=== PATIENT | male | born 1985 | race Caucasian/White ===

== ENCOUNTER → 2021-04-25 16:09 | Outpatient (CLI) | payer OTHER, SELFPAY ==
--- NOTE | 2021-04-25 | VAS_PTH ---
PATIENT: MALIA ALMEIDA LOC: [facility] U#:[id number] AGE/SX: 39/M ROOM: RE04/25/[address]: Dr. James Hollis MD : 1985 BED: DIS: SPEC #: [id number] RECD: 04/25/21 16:01 STATUS: ALONA HOSEA #: [id number] JESSE: 04/25/21 00:[address]: James Hollis DEPT: SURGICAL PATHOLOGY RECD BY: Rigo Sarah ENTERED: 04/26/21 09:15 SP TYPE: VAS OTHR DR: No Primary Care Phys Tissues: A - Vas deferens, NOS B - Vas deferens, NOS Procedures: Surgery Specimen Level II HEADER OPERATION: Bilateral partial vasectomy PRE-OP DIAGNOSIS: Sterilization TISSUE SUBMITTED: A ? Right vas deferens, B ? Left vas deferens MICROSCOPIC DIAGNOSIS A. Right vas deferens, partial vasectomy: Completely transected segment of vas deferens, no pathologic diagnosis. B. Left vas deferens, partial vasectomy: Completely transected segment of vas deferens, no pathologic diagnosis. JOSSUE:jamila 04/29/2021 MICROSCOPIC DESCRIPTION Slides are reviewed. GROSS DESCRIPTION A - Received is one container designated right vas deferens. The specimen consists of a tubular segment of nava soft tissue measuring 0.5 cm in length and 0.3 cm in diameter. The specimen is sectioned and submitted entirely in one cassette. B - Received is one container designated left vas deferens. The specimen consists of a tubular segment of nava soft tissue measuring 0.5 cm in length and 0.3 cm in diameter. The specimen is sectioned and submitted entirely in one cassette. / JOSSUE:jamila 04/26/21 TC:4 [facility]: [id number] x2
== END ==
PROVIDERS: Visit Provider Surgery
DX: Z30.2 Encounter for sterilization (principal)
CPT/HCPCS: 88302

== ENCOUNTER → 2021-05-28 11:48 | Outpatient (CLI) | payer OTHER, SELFPAY ==
[2021-05-29 13:35] LABS: Semen Analysis Post Vas REVIEWED
== END ==
PROVIDERS: Visit Provider Surgery
DX: Z30.09 Encounter for other general counseling and advice on contraception (principal)
CPT/HCPCS: 89321

== ENCOUNTER 2022-07-21 19:59 | Emergency (ER) | payer OTHER, SELFPAY ==
[2022-07-21 19:59] VITALS: BP 131/90; PULSE 83; RESP 16; TEMP 36.9; O2SAT 98; BMI 22.8
--- NOTE | 2022-07-21 20:40 | ED.VIS.GI ---
HPI HPI - GI History of Present Illness Chief Complaint: Abd Pain Informant: patient Abdominal Pain/Flank Pain Onset: Today Context: Gradual Onset Timing: Waxes and wanes Quality: Cramping Location: - (periumbilical) Current Severity: Moderate Maximum Severity: Moderate Worsened by: Nothing Relieved by: Nothing Nausea/Vomiting/Emesis GI Symptom: Negative for Nausea or Vomiting Diarrhea/Melena/Hematochezia GI Symptom: Positive for Diarrhea; Negative for Melena or Hematochezia Onset: Today Stool Quality: Positive for Watery Episodes: 6 Associated Symptoms Associated Symptoms: Negative for Dysuria, Frequency, Hematuria or Urgency Narrative Narrative: 36-year-old healthy patient started having acute watery diarrhea today, followed by colicky abdominal cramping. The pain has been periumbilical. No migration or radiation. No prior abdominal surgeries. No fevers or chills. No travel out of the area. Denies any suspicious food intake. No known sick contacts with similar. No nausea or vomiting. He states he has eaten very little today, he had some pain this morning, he ate a little something for lunch, and then the pain started ramping up 5 or 6 hours after that and he has not eaten any dinner. [facility] Medical History Consultation for sterilization no medical history Home Medications dicyclomine 10 mg capsule 20 mg PO Q4H PRN PRN abdominal discomfort #30 CAPSULES 07/21/22 [Rx Last Taken Unknown] Allergy/AdvReac Type Severity Reaction Status Date / Time No Known Allergies Allergy Verified 07/21/22 20:01 Family History Father Hypertension High cholesterol Mother High cholesterol Hypertension Surgical History History of vasectomy (~04/2021) Social History Smoking Status: Never smoker alcohol intake: never substance use type: does not use ROS ROS ED Constitutional Constitutional ED: Denies chills or fever(s) Eyes Eyes: Denies change in vision or diplopia ENT ENT ED: Denies rhinorrhea or sore throat Cardiovascular Cardiovascular: Denies chest pain or palpitations Respiratory/Chest Respiratory/Chest: Denies cough or dyspnea Gastrointestinal Gastrointestinal: Reports abdominal pain and diarrhea; Denies melena, nausea or vomiting Genitourinary Genitourinary ED: Denies dysuria or hematuria Musculoskeletal Musculoskeletal: Denies back pain or neck pain Integumentary Denies abscess or rash Neurologic Neurologic: Denies headache(s), paresthesias or weakness Psychiatric Psychiatric: Denies anxiety or suicidal thoughts EXAM Physical Exam Const Vital Signs: 07/21/22 19:59 Temperature 98.4 F Temperature Source Temporal Pulse Rate 83 Respiratory Rate 16 Blood Pressure 131/90 H Blood Pressure Mean 103 Pulse Ox 98 Oxygen Delivery Method Room Air Positive well nourished and well developed Constitutional Narrative: Well-appearing. No tachycardia. General Appearance ED: well developed and NAD HEENT Reports moist mucous membranes normocephalic and atraumatic Eyes PERRL and EOMs intact bilaterally Neck full ROM and supple Resp normal respiratory effort and clear to auscultation bilaterally Cardio regular rate, regular rhythm and no murmurs GI non-distended GI Narrative: Mild diffuse upper and mid abdominal tenderness. No tenderness in the lower quadrants. No palpable hernias. Nondistended. Hyperactive bowel sounds. No guarding or rebound tenderness. Auscultation: hyperactive bowel sounds Palpation: soft Back/Spine no CVA tenderness General Back: other FROM Extremity normal to inspection General Extremety ED: Negative for edema, pulses abnormal or tenderness General Extremity: Negative for edema or pulses abnormal Neuro oriented x3, CN's II-XII intact bilaterally and no sensory deficits noted Sensorium / Orientation: awake and alert Motor Exam: strength 5/5 throughout Skin no rashes or lesions noted and no wounds MDM MDM MDM Narrative Medical decision making narrative: Screening labs obtained, his liver enzymes and lipase are within normal limits, as are the rest of his chemistries. He does have a leukocytosis that is mild with a leftward shift no bandemia. Given this I think is reasonable to obtain a CT since this patient has never had this abdominal pain although it is more consistent with acute enteritis. He was initially treated with Toradol, Bentyl, and Mylanta as well as IV fluids. On reevaluation, he states his pain has gradually, totally resolved and he feels much better. He has had no bloody diarrhea to suggest an invasive bacterial etiology. My interpretation of the CT agrees with that of the radiologist. I reviewed his CT images and they appear unremarkable, radiologist is in agreement that he has no evidence of acute appendicitis or any other areas of acute inflammation. Given high prevalence of this in the area recently, he likely has a viral enteritis. Supportive care is advised for now, if his symptoms do not improve after 3 days or so, I recommend close outpatient follow-up, will prescribe him dicyclomine to use as needed for pain in addition to other measures of supportive care that are recommended. Lab Data Attestation: I reviewed the patient's lab results. Labs: Laboratory Results - last 24 hr 07/21/22 07/21/22 20:50 20:50 WBC 12.8 H RBC 5.66 Hgb 16.6 H Hct 47.3 MCV 83.6 MCH 29.3 MCHC 35.1 RDW Std Deviation 37.0 RDW Coeff of Stephanie 12.2 Plt Count 245 MPV 10.2 Immature Gran % (Auto) 0.300 Neut % (Auto) 81.1 H Lymph % (Auto) 12.7 L [place] % (Auto) 5.2 Eos % (Auto) 0.5 Baso % (Auto) 0.2 Absolute Neuts (auto) 10.4 H Absolute Lymphs (auto) 1.63 Nucleated RBC % 0 Sodium 140 Potassium 4.1 Chloride 106 Carbon Dioxide 28.0 Anion Gap 6 BUN 12 Creatinine 0.86 Estim Creat Clear Calc 120.36 Est GFR (MDRD) Af Amer 131 Est GFR (MDRD) Non-Af 109 BUN/Creatinine Ratio 14.0 Glucose 119 H Calcium 9.3 Total Bilirubin 0.60 AST 19 ALT 30 Alkaline Phosphatase 88 Total Protein 8.2 Albumin 4.4 Globulin 3.8 Albumin/Globulin Ratio 1.2 Lipase 103 Radiography Diagnostic Testing: Clinical Impression(s) from Imaging Studies Abdomen/Pelvis CT 07/21/22 21:40 IMPRESSION: undefined Discharge Plan Triage Chief Complaint: Abd Pain ED Provider: Barron Kuhn Dx/Rx/DC Orders Clinical Impression: Viral enteritis, Diffuse abdominal pain Instructions: ED Diarrhea, Viral (Adult) Prescriptions: New dicyclomine 10 mg capsule 20 mg PO Q4H PRN PRN (Reason: abdominal discomfort) Qty: 30 0RF Primary Care Provider: Care Physician,No Primary Referrals: Care Physician,No Primary [Primary Care Provider] - Doctor,Your [Non-Staff] - 3-5 Days if not improving Disposition Disposition: Home, Self Care
[2022-07-21 20:57] LABS: Absolute Lymphocyte Count 1.63 X10^3/uL (0.83-4.51); Absolute Neutrophil Count 10.4 X10^3/uL (2.0-7.7); Basophil# 0.03 X10^3/uL; Basophil% 0.2 % (0-1); Eosinophil# 0.07 X10^3/uL; Eosinophils% 0.5 % (0-5); Hematocrit 47.3 % (40-54); Hemoglobin 16.6 g/dL (13.0-16.5); Lymphocyte # 1.63 X10^3/ul (0.83-4.51); Lymphocyte % 12.7 % (19-41); Mean Corp Hgb Conc 35.1 g/dL (32-36); Mean Corpuscular Hgb 29.3 pg (27.0-32.0); Mean Corpuscular Volume 83.6 fL (80-94); Mean Platelet Vol. 10.2 fl (6.2-12.0); Monocyte# 0.66 X10^3/uL; Monocyte% 5.2 % (0-10); NRBC Flagged by Analyzer 0 % (0-5); Neutrophil # 10.37 X10^3/uL (2.7-7.7); Neutrophil % 81.1 % (47-70); Platelet Count 245 K/mm3 (150-450); RBC Distribution Width CV 12.2 % (11.6-14.6); Red Blood Count 5.66 M/mm3 (4.6-6.2); White Blood Count 12.8 K/mm3 (4.4-11.0)
[2022-07-21 21:13] LABS: ALB/GLOB Ratio 1.2 RATIO (0.9-2.4); AST(SGOT) 19 U/L (15-37); Alanine Aminotransfer ALT/SGPT 30 U/L (16-61); Albumin, Serum 4.4 g/dL (3.2-5.0); Alkaline Phosphatase 88 U/L (45-117); Anion Gap 6 (5-15); BUN 12 mg/dL (7-18); Calcium,Total 9.3 mg/dL (8.5-10.1); Chloride 106 mmol/L (98-107); Creatinine, Serum 0.86 mg/dL (0.70-1.30); EST Glomerular Filtration Rate 109 mL/min (>60); Est Glom Filt Rate - Afr Amer 131 mL/min (>60); Estimated Creatinine Clearance 120.36 ml/min; Globulin 3.8 g/dL (2.2-4.2); Glucose 119 mg/dL (74-106); Lipase 103 U/L (73-393); Potassium 4.1 mmol/L (3.5-5.1); Protein, Total 8.2 g/dL (6.4-8.2); Sodium Level 140 mmol/L (136-145)
[2022-07-21] MEDS: Ketorolac 15 MG/ML Vial IV (21:25)
[2022-07-21] MEDS: Dicyclomine 10 MG Capsule 20 MG PO (21:25)
[2022-07-21] MEDS: Mag Hydrox/Al Hydrox/Simeth 30 ML UDC PO (21:25)
[2022-07-21] MEDS: 0.9% Normal Saline 1,000 ML 1000 ML IV (21:27)
--- NOTE | 2022-07-21 21:40 | CT_ITS ---
EXAM: CT abdomen and pelvis with contrast. HISTORY: right abd pain TECHNIQUE: CT Abdomen And Pelvis W/ Contrast Injection. A radiation dose optimization technique was used for this scan. COMPARISON: None. LIMITATIONS: None. LOWER CHEST: Normal. LIVER: Normal. GALLBLADDER: Normal. BILE DUCTS: Normal. PANCREAS: Normal. SPLEEN: Normal. ADRENAL GLANDS: Normal. KIDNEYS/URETERS/BLADDER: Normal. AORTA: Normal caliber. BOWEL/MESENTERY: No small bowel obstruction. No evidence of colitis. APPENDIX: The appendix is upper normal in caliber measuring 5 to 6 mm. No definite adjacent inflammatory change. Mild amount of fluid within the lumen of the distal appendix. PERITONEUM: Normal. REPRODUCTIVE ORGANS: Normal. BONES/SOFT TISSUES: No acute fracture. OTHER: None. CONCLUSION: No definitive evidence of acute appendicitis. If there is clinical concern for early appendicitis, consider observation. Electronically Signed: Bob Mayes MD at 22:34 EST , CT/Abdomen/Pelvis W IV Cont ONLY IMPRESSION: undefined
== END 2022-07-21 23:08 | disposition home or self-care (01) ==
PROVIDERS: Emergency Provider Emergency Medicine; Visit Provider Emergency Medicine
DX: A08.4 Viral intestinal infection, unspecified (principal); R10.84 Generalized abdominal pain
CPT/HCPCS: 74177; 80053; 83690; 85025; 96361; 96374; 99284; J7030; Q9967; A4216

== ENCOUNTER → 2022-10-11 | Outpatient (CLI) | payer OTHER, SELFPAY ==
[2022-10-11 14:12] LABS: Semen Analysis Post Vas ABSENT
[2022-10-13 12:12] LABS: Pathologist Review Reviewed
== END | disposition home or self-care (01) ==
LOC: LABSPEC 11:26
PROVIDERS: Referring Provider Surgery; Visit Provider Surgery
DX: Z98.52 Vasectomy status (principal)
CPT/HCPCS: 89321

== ENCOUNTER → 2025-04-25 | Outpatient (CLI) | payer OTHER, SELFPAY ==
[2025-04-25 12:21] LABS: Hematocrit 46.1 % (40-54); Hemoglobin 16.2 g/dL (13.0-16.5); Immature Granulocytes Count 0.010 X10^3/uL (0.0-0.0); Mean Corp Hgb Conc 35.1 g/dL (32-36); Mean Corpuscular Volume 83.4 fL (80-94); Mean Platelet Vol. 11.4 fl (6.2-12.0); NRBC Flagged by Analyzer 0 % (0-5); Platelet Count 226 K/mm3 (150-450); RBC Distribution Width CV 12.2 % (11.6-14.6); RBC Distribution Width SD 37.2 fl (35.1-43.9); Red Blood Count 5.53 M/mm3 (4.6-6.2); White Blood Count 7.1 K/mm3 (4.4-11.0)
[2025-04-25 12:59] LABS: AST(SGOT) 22 U/L (<=37); Alanine Aminotransfer ALT/SGPT 25 U/L (<=46); Albumin, Serum 4.8 g/dL (3.5-5.0); Alkaline Phosphatase 78 U/L (40-129); Anion Gap 10 (5-15); BUN 14 mg/dL (4-19); BUN/Creat Ratio 15.2 RATIO (10-20); Calcium,Total 9.9 mg/dL (7.6-11.0); Carbon Dioxide 27.8 mmol/L (21.0-32.0); Chloride 102 mmol/L (98-108); Cholesterol 146 mg/dL (<=200); Globulin 3.3 g/dL (2.2-4.2); Glucose 96 mg/dL (70-99); Low Density Lipoprotein Calc. 79 mg/dL; Potassium 4.1 mmol/L (3.3-5.1); Triglycerides 86 mg/dL; Very Low Density Lipoprotein 17 mg/dL (5-40); cholesterol:hdl ratio screen 2.88
== END | disposition home or self-care (01) ==
LOC: MTLAB 09:12
PROVIDERS: PCP Family Medicine; Referring Provider Family Medicine; Visit Provider Family Medicine
DX: Z00.00 Encounter for general adult medical examination without abnormal findings (principal); R03.0 Elevated blood-pressure reading, without diagnosis of hypertension
CPT/HCPCS: 36415; 80053; 80061; 85025